=== PATIENT | male | born 1965 | race Two or more races ===

== ENCOUNTER 2018-01-17 10:28 | Emergency (ER) | payer MEDICAID ==
[~2018-01-17] VITALS: Ht 170.2 cm; Wt 88.9 kg
[2018-01-17 10:48] VITALS: BP 177/100
[2018-01-17] MEDS ORDERED: Morphine Sulfate 4mg/ml Inj (IV USE ONLY) IVP ONE (11:00)
[2018-01-17] MEDS ORDERED: Mylanta II UD 30ml ORAL ONE (11:00)
[2018-01-17] MEDS ORDERED: Lidocaine 2% Visc 15ml soln ORAL ONE (11:00)
[2018-01-17 11:10] LABS: BASOPHILS % (AUTO) 0.7 % (0.0-2.0); EOSINOPHILS % (AUTO) 0.3 % (0.0-3.0); HEMATOCRIT 47.8 % (42.0-52.0); LYMPHOCYTES % (AUTO) 23.8 % (20.0-45.0); MEAN CORPUSCULAR VOLUME 84 FL (80-99); MONOCYTES % (AUTO) 9.5 % (1.0-10.0); NEUTROPHILS % (AUTO) 65.7 % (45.0-75.0); PLATELET COUNT 256 K/UL (150-450); RED BLOOD COUNT 5.66 M/UL (4.70-6.10); RED CELL DISTRIBUTION WIDTH 10.5 % (11.6-14.8); WHITE BLOOD COUNT 9.5 K/UL (4.8-10.8)
[2018-01-17 11:11] LABS: APPEARANCE,URINE SLIGHTLY CLOUDY; BILIRUBIN, URINE NEGATIVE (NEGATIVE); COLOR,URINE PALE YELLOW; GLUCOSE, URINE (UA) 4+ (NEGATIVE); KETONES,URINE NEGATIVE (NEGATIVE); LEUKOCYTE ESTERASE ,URINE NEGATIVE (NEGATIVE); NITRITE,URINE NEGATIVE (NEGATIVE); PH,URINE 7 (4.5-8.0); PROTEIN,URINE 1+ (NEGATIVE); UROBILINOGEN,URINE NORMAL MG/DL (0.0-1.0)
[2018-01-17 11:16] LABS: INR 1.1 (0.9-1.1)
[2018-01-17 11:23] LABS: ANION GAP 6 mmol/L (5-15); BLOOD UREA NITROGEN 13 mg/dL (7-18); CALCIUM 9.1 MG/DL (8.5-10.1); CARBON DIOXIDE 28 MMOL/L (21-32); CHLORIDE 97 MMOL/L (98-107); POTASSIUM 4.1 MMOL/L (3.5-5.1); SODIUM 131 MMOL/L (136-145)
[2018-01-17 11:27] LABS: ALANINE AMINOTRANSFERASE 32 U/L (12-78); ALBUMIN 3.9 G/DL (3.4-5.0); ALKALINE PHOSPHATASE 75 U/L (46-116); ASPARTATE AMINO TRANSFERASE 19 U/L (15-37); BILIRUBIN,TOTAL 0.5 MG/DL (0.2-1.0)
[2018-01-17 12:49] VITALS: BP 159/93
--- NOTE | 2018-01-17 13:11 | Diagnostic Imaging Report ---
Indication: Abdominal pain Technique: Supine and upright views of the abdomen Comparison: none Findings: 2 mildly dilated small bowel loops are seen in the left upper quadrant. Otherwise unremarkable bowel gas pattern, no significant air-fluid levels or evidence free intraperitoneal air. Gas is seen within the colon as well as small bowel. No unusual masses or calcifications Impression: . Nonspecific mildly dilated left upper quadrant small bowel loops, without evidence of air-fluid levels. Likely represents focal ileus or could just be upper limits normal in caliber. The possibility of early small bowel obstruction should also be considered. Correlate with clinical findings
--- NOTE | 2018-01-17 14:52 | Emergency Room Report ---
History of Present Illness General Chief Complaint: Abdominal Pain Source: Patient Present Illness HPI Patient presents with epigastric pain and vomiting. The pain is worse when he lays down. Burning and severe. He was seen at another hospital. He is given a prescription for Mylanta and Zofran. He states he was not treated there. This has not helped pain. Pain is 10/10. He moved his bowels yesterday - initially hard stool and then loose. He denies any melena. Denies any dysuria. Alcohol use. Makes worse. No fevers chills. No rashes, back pain, joint pain, URI sy, cough, chest pain. No h/o diabetes. Allergies: Coded Allergies: No Known Allergies (Unverified , 01/17/18) Patient History Past Medical History: see triage record Social History: Reports: alcohol use; Denies: smoking Social History Narrative with family member Reviewed Nursing Documentation: PMH: Agreed; PSxH: Agreed Nursing Documentation-PMH Past Medical History: No History, Except For Hx Diabetes: Yes Review of Systems All Other Systems: negative except mentioned in HPI Physical Exam Vital Signs Date Time Temp Pulse Resp B/P (MAP) Pulse Ox O2 Delivery O2 Flow Rate FiO2 01/17/18 10:39 98.4 93 18 132/88 99 Room Air 98.4 Sp02 EP Interpretation: reviewed, normal General Appearance: well appearing, alert, GCS 15, non-toxic, mild distress Head: normocephalic Eyes: bilateral eye normal inspection, bilateral eye PERRL ENT: moist mucus membranes Neck: supple Respiratory: lungs clear, normal breath sounds Cardiovascular #1: regular rate, rhythm Cardiovascular #2: 2+ radial (R) Gastrointestinal: normal inspection, normal bowel sounds, no mass, non- distended, no guarding, no rebound, tenderness - epigastric Genitourinary: no CVA tenderness Musculoskeletal: back normal, gait/station normal, normal range of motion Neurologic: alert, oriented x3, grossly normal Psychiatric: anxious Skin: normal inspection, warm/dry Medical Decision Making Diagnostic Impression: Primary Impression: Gastritis Qualified Codes: K29.20 - Alcoholic gastritis without bleeding Additional Impression: Hyperglycemia ER Course Patient with epigastric pain associated with drinking alcohol. DDX: AMI, gastritis, pancreatitis, GERD, PUD, gallstones amongst others. Evaluation with EKG, labs and xray. Treatment with IV hydration, pepcid, zofran, morphine. Repeat exams. EKG no injury. ABD with some gas filled loops of bowel LUQ. Labs with laurita CBC. CMP with elevated glucose. Lipase normal. Improved with treatment. Discussed results with patient and need for follow up. Patient stable for outpatient observation and treatment. Labs Test 01/17/18 10:55 White Blood Count 9.5 K/UL (4.8-10.8) Red Blood Count 5.66 M/UL (4.70-6.10) Hemoglobin 17.0 G/DL (14.2-18.0) Hematocrit 47.8 % (42.0-52.0) Mean Corpuscular Volume 84 FL (80-99) Mean Corpuscular Hemoglobin 30.1 PG (27.0-31.0) Mean Corpuscular Hemoglobin Concent 35.6 G/DL (32.0-36.0) Red Cell Distribution Width 10.5 % (11.6-14.8) Platelet Count 256 K/UL (150-450) Mean Platelet Volume 6.5 FL (6.5-10.1) Neutrophils (%) (Auto) 65.7 % (45.0-75.0) Lymphocytes (%) (Auto) 23.8 % (20.0-45.0) Monocytes (%) (Auto) 9.5 % (1.0-10.0) Eosinophils (%) (Auto) 0.3 % (0.0-3.0) Basophils (%) (Auto) 0.7 % (0.0-2.0) Prothrombin Time 12.0 SEC (9.30-11.50) Prothromb Time International Ratio 1.1 (0.9-1.1) Activated Partial Thromboplast Time 26 SEC (23-33) Urine Color Pale yellow Urine Appearance Slightly cloudy Urine pH 7 (4.5-8.0) Urine Specific [place] 1.010 (1.005-1.035) Urine Protein 1+ (NEGATIVE) Urine Glucose (UA) 4+ (NEGATIVE) Urine Ketones Negative (NEGATIVE) Urine Blood Negative (NEGATIVE) Urine Nitrite Negative (NEGATIVE) Urine Bilirubin Negative (NEGATIVE) Urine Urobilinogen Normal MG/DL (0.0-1.0) Urine Leukocyte Esterase Negative (NEGATIVE) Urine RBC 0-2 /HPF (0 - 0) Urine WBC 0-2 /HPF (0 - 0) Urine Squamous Epithelial Cells Occasional /LPF Urine Bacteria Occasional /HPF (NONE) Sodium Level 131 MMOL/L (136-145) Potassium Level 4.1 MMOL/L (3.5-5.1) Chloride Level 97 MMOL/L (98-107) Carbon Dioxide Level 28 MMOL/L (21-32) Anion Gap 6 mmol/L (5-15) Blood Urea Nitrogen 13 mg/dL (7-18) Creatinine 1.0 MG/DL (0.55-1.30) Estimat Glomerular Filtration Rate > 60 mL/min (>60) Glucose Level 269 MG/DL (74-106) Calcium Level 9.1 MG/DL (8.5-10.1) Total Bilirubin 0.5 MG/DL (0.2-1.0) Aspartate Amino Transf (AST/SGOT) 19 U/L (15-37) Alanine Aminotransferase (ALT/SGPT) 32 U/L (12-78) Alkaline Phosphatase 75 U/L (46-116) Total Protein 8.0 G/DL (6.4-8.2) Albumin 3.9 G/DL (3.4-5.0) Globulin 4.1 g/dL Albumin/Globulin Ratio 1.0 (1.0-2.7) Lipase 153 U/L (73-393) EKG Diagnostic Results Rate: normal Rhythm: NSR ST Segments: no acute changes Rhythm Strip Diag. Results EP Interpretation: yes Rhythm: NSR, no PVC's, no ectopy Other X-Ray Diagnostic Results Other X-Ray Diagnostic Results : # of Views/Limited Vs Complete: 1 View Indication: Pain EP Interpretation: Yes Interpretation: nonspecific bowel gas, no sbo, other - some small bowel layering LUQ Impression: Other Electronically Signed by: Electronically signed by Gerson Haley MD Last Vital Signs Date Time Temp Pulse Resp B/P (MAP) Pulse Ox O2 Delivery O2 Flow Rate FiO2 01/17/18 15:05 98.5 82 25 152/99 99 Room Air 98.5 Status: improved Disposition: HOME, SELF-CARE Condition: Improved Scripts Acetaminophen (Tylenol) 325 Mg Tablet 650 MG ORAL Q6H PRN for Prn Pain/Headache/Temp > 101, #20 TAB 0 Refills Prov: Gerson Haley M.D. 01/17/18 Tramadol Hcl* (ULTRAM*) 50 Mg Tablet 50 MG ORAL Q6H PRN for For Pain, #12 TAB 0 Refills Prov: Gerson Haley M.D. 01/17/18 Famotidine (PEPCID AC) 20 Mg Tablet 20 MG PO DAILY, #30 TAB Prov: Gerson Haley M.D. 01/17/18 Referrals: NON PHYSICIAN (PCP) Gerson Haley M.D. Jan 17, 2018 14:52
[2018-01-17] MEDS ORDERED: TYLENOL325 MG ORAL (14:59)
[2018-01-17] MEDS ORDERED: PEPCID AC20 M2 PO (14:59)
[2018-01-17] MEDS ORDERED: TRAMADOL HCL50 MG ORAL (14:59)
[2018-01-17 15:05] VITALS: BP 152/99
== END 2018-01-17 15:05 | disposition home or self-care (01) ==
LOC: EMR 11:00
DX: K29.20 Alcoholic gastritis without bleeding (principal); E11.65 Type 2 diabetes mellitus with hyperglycemia; R14.3 Flatulence
CPT/HCPCS: 36415; 74019; 80053; 81003; 83690; 85025; 85610; 85730; 93005; 96360; 99284; J2270; J2405; S0028

== ENCOUNTER 2019-02-28 18:02 | Emergency (ER) | payer MEDICAID ==
[~2019-02-28] VITALS: Ht 167.6 cm; Wt 95.3 kg
[~2019-02-28 18:02] MED LIST: PEPCID AC20 M2 PO; TRAMADOL HCL50 MG ORAL; TYLENOL325 MG ORAL
[2019-02-28 18:10] VITALS: BP 156/93
[2019-02-28] MEDS ORDERED: UNOBMED (18:14)
--- NOTE | 2019-02-28 18:30 | NUR ---
ED Nurse Note: PT WALKED IN DUE TO BURNING PAIN ON HIS UPPER ABD. WITH N/V THAT STARTED TODAY. NO ACTIVE VOMITING UPON ARRIVAL. AAO X4 AND AMBULATORY.
[2019-02-28] MEDS ORDERED: Mylanta II UD 30ml ORAL ONE (19:00)
[2019-02-28] MEDS ORDERED: Lidocaine 2% Visc 15ml soln ORAL ONE (19:00)
--- NOTE | 2019-02-28 19:05 | NUR ---
HAND-OFF: Report given to MARÍA ELENA VALLE.
[2019-02-28 19:15] VITALS: BP 150/76
--- NOTE | 2019-02-28 19:39 | Emergency Room Report ---
History of Present Illness General Chief Complaint: Abdominal Pain Source: Patient Present Illness HPI 53-year-old male presents to the emergency department complaining of 6 out of 10 severity epigastric burning sensation since yesterday. Patient reports eating or drinking makes his symptoms worse he states he is also had 4 episodes of vomiting he denies constipation or diarrhea. He reports inability to tolerate fluids or food. Denies fevers or chills, blood in the vomit or stool or black tarry stools. Patient denies history of alcoholism. He reports hx of stomach acid issues and his PCP rx'd him Tums which are now not working. . He reports being told he has pre-hypertension and prediabetic. He denies being rx' d any medications for these. He denies polydipsia, polyuria, GOMEZ, dizziness, shakiness, or confusion. Denies recent travel or ill contacts with similar symptoms. Denies any additional aggravating or relieving factors at this time. Allergies: Coded Allergies: No Known Allergies (Unverified , 01/17/18) Patient History Past Medical History: see triage record Past Surgical History: none Pertinent Family History: none Reviewed Nursing Documentation: PMH: Agreed; PSxH: Agreed Nursing Documentation-PMH Past Medical History: No History, Except For Hx Hypertension: Yes Hx Diabetes: Yes Review of Systems All Other Systems: negative except mentioned in HPI Physical Exam Vital Signs Date Time Temp Pulse Resp B/P (MAP) Pulse Ox O2 Delivery O2 Flow Rate FiO2 02/28/19 18:10 98.1 103 17 156/93 (114) 95 Room Air Sp02 EP Interpretation: reviewed, normal General Appearance: well appearing, no apparent distress, alert, GCS 15, non- toxic Head: normocephalic, atraumatic Eyes: bilateral eye normal inspection, bilateral eye PERRL ENT: hearing grossly normal, normal voice Neck: full range of motion Respiratory: lungs clear, normal breath sounds, speaking full sentences Cardiovascular #1: regular rate, rhythm, tachycardia - triage VS tachy, on PE HR palpated at 23bp 15 secs= 94bpm Gastrointestinal: normal bowel sounds, non tender, soft, non-distended, no guarding Musculoskeletal: gait/station normal, normal range of motion, non-tender Neurologic: alert, oriented x3, responsive, motor strength/tone normal, sensory intact, speech normal, grossly normal Psychiatric: judgement/insight normal Skin: normal color, warm/dry Medical Decision Making PA Attestation Dr. Hitchcock is my supervising Physician whom patient management has been discussed with. Diagnostic Impression: Primary Impression: Abdominal pain Qualified Codes: R10.13 - Epigastric pain Additional Impression: Gastritis Qualified Codes: K29.70 - Gastritis, unspecified, without bleeding ER Course 53-year-old male presents to the emergency department complaining of 6 out of 10 severity epigastric burning sensation since yesterday. Patient reports eating or drinking makes his symptoms worse he states he is also had 4 episodes of vomiting he denies constipation or diarrhea. He reports inability to tolerate fluids or food. Denies fevers or chills, blood in the vomit or stool or black tarry stools. Patient denies history of alcoholism. He reports hx of stomach acid issues and his PCP rx'd him Tums which are now not working. . He reports being told he has pre-hypertension and prediabetic. He denies being rx' d any medications for these. He denies polydipsia, polyuria, GOMEZ, dizziness, shakiness, or confusion. Denies recent travel or ill contacts with similar symptoms. Denies any additional aggravating or relieving factors at this time. Ddx considered but are not limited to GE, hyperglycemia, colitis, acute appy, SBO, H.pylori, Gastritis, PNA, pericarditis just to name a few. Vital signs: pt. is afebrile H&PE are most consistent with epigastric abdominal pain most likely gastritis - no evidence to suggest acute abdomen on physical exam. No evidence of significant dehydration. ORDERS: -None required at this time, the dx is clinical. ED INTERVENTIONS: -Zofran PO -Mylanta PO -Lidocaine PO -Pepcid PO Patient reports that his symptoms have completely resolved with the above interventions. This patient successfully completed oral fluid challenge without nausea or vomiting. -I do not identify an emergent condition at this time. With current presentation , pt. is stable for close outpatient follow up and conservative treatment. D/ w pt. to return promptly to ED with worsening of symptoms, new symptoms or if medications are not working.- Pt. verbalized' understanding and agreement with proposed treatment plan.proposed treatment plan. DISCHARGE: At this time pt. is stable for d/c to home. Will provide printed patient care instructions, and any necessary prescriptions. Care plan and follow up instructions have been discussed with the patient prior to discharge. Last Vital Signs Date Time Temp Pulse Resp B/P (MAP) Pulse Ox O2 Delivery O2 Flow Rate FiO2 02/28/19 18:20 100 15 Room Air 02/28/19 18:10 98.1 156/93 95 Disposition: HOME, SELF-CARE Condition: Stable Scripts Ondansetron Odt* (ZOFRAN ODT*) 4 Mg Tab.rapdis 4 MG BC EVERY 8 HOURS PRN for Nausea & Vomiting, #10 TAB 0 Refills Prov: Jessika Alonzo 02/28/19 Ranitidine Hcl* (ZANTAC*) 150 Mg Tablet 150 MG ORAL TWICE A DAY for 7 Days, #14 TAB Prov: Jessika Alonzo 02/28/19 Omeprazole (OMEPRAZOLE) 20 Mg Capsule.dr 20 MG ORAL DAILY for 10 Days, #10 CAP Prov: Jessika Alonzo 02/28/19 Patient Instructions: Abdominal Pain, Adult, Gastritis, Adult, Gastroesophageal Reflux Disease, Adult Additional Instructions: Take medications as directed. Follow up with a Primary Care Provider in 3-5 days, even if your symptoms have resolved. --Please review list of primary care clinics, if you do not already have a primary care provider Return sooner to ED if new symptoms occur, or current symptoms become worse. - Please note that this Emergency Department Report was dictated using Hitch[employer] systems modeler technology software, occasionally this can lead to erroneous entry secondary to interpretation by the dictation equipment. Jessika Alonzo Feb 28, 2019 19:39
[2019-02-28] MEDS ORDERED: ZANTAC150 MG ORAL (19:58)
[2019-02-28] MEDS ORDERED: OMEPRAZOLE20 M2 ORAL (19:58)
[2019-02-28 20:09] VITALS: BP 150/76
--- NOTE | 2019-02-28 20:10 | NUR ---
ED Nurse Note: Pt cleared by health care Provider for discharge. DC instructions/prescription was given and explained to pt and verbalized understanding of teachings. All medical deviecs such as ID band removed. Pt is AAO x4, ambulatory and left with all personal belongings.
[2019-02-28] MEDS ORDERED: ONDANSETRON ODT4 MG BC (20:14)
== END 2019-02-28 20:10 | disposition home or self-care (01) ==
LOC: EMR 18:30
DX: K29.70 Gastritis, unspecified, without bleeding (principal); R73.03 Prediabetes
CPT/HCPCS: 99283

== ENCOUNTER 2019-03-02 21:11 | Emergency (ER) | payer MEDICAID ==
[~2019-03-02] VITALS: Ht 162.6 cm; Wt 95.3 kg
[~2019-03-02 21:11] MED LIST changes: +OMEPRAZOLE20 M2 ORAL; +ONDANSETRON ODT4 MG BC; +UNOBMED; +ZANTAC150 MG ORAL
--- NOTE | 2019-03-02 21:35 | NUR ---
ED Nurse Note: Recieved pt from home, here with c/o abdominal pain with nausea and vomiting x 3 days, pt states he has pancreatitis, pt seen here 3 days ago with same s/s, states all symptoms returned, pt with active emesis.
--- NOTE | 2019-03-02 21:36 | Emergency Room Report ---
History of Present Illness General Chief Complaint: Abdominal Pain Source: Patient Present Illness [facility] This is a 53-year-old male with no past medical history. He presents with chief complaint of epigastric pain. Onset for last 3 days now. He has vomiting no diarrhea. Unable keep anything down. No fever chills. Pain is sharp in nature. No radiation. No alcohol use. He was here 3 days ago. X- ray was negative. Not getting any better. Denies any other complaint. Nothing made it better. Eating or drinking made it worse. Allergies: Coded Allergies: No Known Allergies (Unverified , 01/17/18) Patient History Past Medical History: see triage record, old chart reviewed Past Surgical History: none Pertinent Family History: none Social History: Denies: smoking Immunizations: other Reviewed Nursing Documentation: PMH: Agreed; PSxH: Agreed Nursing Documentation-PMH Hx Hypertension: Yes Hx Diabetes: Yes Review of Systems Eye: Denies: eye pain, blurred vision ENT: Denies: ear pain, nose congestion, throat swelling Respiratory: Denies: cough, shortness of breath Cardiovascular: Denies: chest pain, palpitations Gastrointestinal: Reports: abdominal pain, nausea, vomiting; Denies: diarrhea Musculoskeletal: Denies: back pain, joint pain Skin: Denies: rash Neurological: Denies: headache, numbness Endocrine: Denies: increased thirst, increased urine Hematologic/Lymphatic: Denies: easy bruising All Other Systems: negative except mentioned in HPI Physical Exam Vital Signs Date Time Temp Pulse Resp B/P (MAP) Pulse Ox O2 Delivery O2 Flow Rate FiO2 03/02/19 21:13 98.6 95 18 206/107 (140) 97 Room Air Vitals with high blood pressure Sp02 EP Interpretation: reviewed, normal General Appearance: well appearing, no apparent distress, alert Head: normocephalic, atraumatic Eyes: bilateral eye PERRL, bilateral eye EOMI ENT: hearing grossly normal, normal pharynx Neck: full range of motion, supple, no meningismus Respiratory: chest non-tender, lungs clear, normal breath sounds Cardiovascular #1: regular rate, rhythm, no murmur Gastrointestinal: no mass, no organomegaly, no bruit, non-distended, tenderness - Epigastric, decreased bowel sounds Musculoskeletal: back normal, gait/station normal, normal range of motion Psychiatric: mood/affect normal Medical Decision Making Diagnostic Impression: Primary Impression: Epigastric abdominal pain Additional Impression: Nonalcoholic hepatosteatosis ER Course Presents with epigastric abdominal pain. No evidence of obstruction or acute abdomen. This may be secondary to a peptic ulcer disease. Could be from fatty liver. Currently on Zofran and omeprazole ready. CT/MRI/US Diagnostic Results CT/MRI/US Diagnostic Results : Imaging Test Ordered: CT abdomen and pelvis Impression Read by radiologist. Hepatomegaly with diffuse hepatic steatosis. No appendicitis. No obstruction. Last Vital Signs Date Time Temp Pulse Resp B/P (MAP) Pulse Ox O2 Delivery O2 Flow Rate FiO2 03/02/19 21:13 98.6 95 18 206/107 (140) 97 Room Air Status: improved Disposition: HOME, SELF-CARE Condition: Stable Scripts Hydrocodone/Acetaminophen 5-325* (HYDROCODONE/ACETAMINOPHEN 5-325*) 1 Each Tablet 1 TAB ORAL Q6H PRN for For Pain, #20 TAB 0 Refills Prov: Valente Thompson MD 03/02/19 Additional Instructions: Follow-up with your doctor in a week. You may need referral to see a GI doctor for endoscopy. Return if worse. Valente Thompson MD Mar 02, 2019 21:36
[2019-03-02] MEDS ORDERED: Morphine Sulfate 4mg/ml Inj (IV USE ONLY) IVP ONE (21:45)
[2019-03-02] MEDS ORDERED: Pantoprazole Inj IV ONE (21:45)
[2019-03-02 22:05] LABS: ANION GAP 11 mmol/L (5-15); BLOOD UREA NITROGEN 15 mg/dL (7-18); CARBON DIOXIDE 26 MMOL/L (21-32); CHLORIDE 103 MMOL/L (98-107); SODIUM 140 MMOL/L (136-145)
[2019-03-02 22:10] LABS: ALANINE AMINOTRANSFERASE 59 U/L (12-78); ALBUMIN 4.1 G/DL (3.4-5.0); ALBUMIN/GLOBULIN RATIO 1.1 (1.0-2.7); ALKALINE PHOSPHATASE 70 U/L (46-116); ASPARTATE AMINO TRANSFERASE 29 U/L (15-37); BILIRUBIN,TOTAL 0.5 MG/DL (0.2-1.0)
--- NOTE | 2019-03-02 22:32 | Diagnostic Imaging Report ---
CT ABDOMEN AND PELVIS WITHOUT CONTRAST INDICATION: Abdominal pain TECHNIQUE: Continuous helical transaxial imaging of the abdomen and pelvis was obtained from the lung bases to the pubic symphysis. Coronal 2-D reformats were also obtained. Study obtained in a Siemens sensation [address] Automatic Exposure Control was utilized. Total Dose length Product (DLP): 1235.[address] Dose Index Volume (CTDIvol): 19 mGy COMPARISON: None available FINDINGS: Lower chest:: Left basilar subsegmental atelectasis. Scattered calcified hilar lymph nodes. Hepatobiliary:: Unremarkable. Genitourinary:: There is prostatomegaly. Urinary bladder demonstrates mild trabeculation. Adrenals::Unremarkable. Pancreas:: Unremarkable. Gastrointestinal:: No evidence of obstruction. Appendix is normal. Scattered colonic diverticulosis without evidence of acute diverticulitis. Spleen: : There are scattered coarse calcifications throughout the splenic parenchyma. Peritoneum:: Small broad-based umbilical hernia containing nonobstructed loop of bowel. Bones and soft tissues:: There are multilevel discogenic degenerative changes of the visualized spine. IMPRESSION: 1. No acute findings in the abdomen or pelvis. 2. Evidence of old granulomatous disease including splenic calcifications and calcified lymph nodes. 3. Prostatomegaly with suggestion of chronic lateral obstruction. These findings are concordant with the [facility] preliminary report. The CT scanner at [facility] is accredited by the [employer] and the scans are performed using protocols designed to limit radiation exposure to as low as reasonably achievable to attain images of sufficient resolution adequate for diagnostic evaluation
--- NOTE | 2019-03-02 22:45 | NUR ---
ER DISCHARGE NOTE: Patient is cleared to be discharged per ERMD, pt is aox4, on room air, with stable vital signs. pt was given dc and prescription instructions, pt was able to verbalize understanding, pt id band removed without complications. pt is able to ambulate with steady gait. pt took all belongings.
[2019-03-02 22:47] LABS: HEMOGLOBIN 15.7 G/DL (14.2-18.0); MEAN CORPUSCULAR VOLUME 86 FL (80-99); PLATELET COUNT 182 K/UL (150-450); RED BLOOD COUNT 5.12 M/UL (4.70-6.10); RED CELL DISTRIBUTION WIDTH 10.3 % (11.6-14.8); WHITE BLOOD COUNT 7.1 K/UL (4.8-10.8)
[2019-03-02 23:00] VITALS: BP 154/92
[2019-03-02] MEDS ORDERED: HYDROCODON-ACE1 EA15 ORAL (23:06)
[2019-03-02 23:25] VITALS: BP 154/92
== END 2019-03-02 23:25 | disposition home or self-care (01) ==
LOC: EMR 21:35
DX: R10.13 Epigastric pain (principal); K76.0 Fatty (change of) liver, not elsewhere classified; E11.9 Type 2 diabetes mellitus without complications; I10 Essential (primary) hypertension
CPT/HCPCS: 36415; 74176; 80053; 83690; 85007; 85025; 96361; 96374; 96375; J2270; J2405; S0164; Z7502; 99284; J7030